=== PATIENT | female | born 1945 | race Two or more races ===

== ENCOUNTER 2021-11-19 14:27 | Outpatient (CLI) | payer OTHER | END 2021-11-19 14:28 | disposition home or self-care (01) | LOC: NUCLEAR 14:27 | PROVIDERS: ATTEND Internal Medicine Sports Medicine | DX: C73 Malignant neoplasm of thyroid gland (principal); E89.0 Postprocedural hypothyroidism | CPT/HCPCS: 79005; A9517 ==

== ENCOUNTER 2021-11-23 12:27 | Outpatient (CLI) | payer OTHER | END 2021-11-23 12:28 | disposition home or self-care (01) | LOC: NUCLEAR 12:27 | PROVIDERS: ATTEND Internal Medicine Sports Medicine | DX: C73 Malignant neoplasm of thyroid gland (principal); E89.0 Postprocedural hypothyroidism | CPT/HCPCS: 78018; 78020; A9528 ==

== ENCOUNTER 2023-06-03 12:19 | Outpatient (CLI) | payer OTHER | END 2023-06-03 12:23 | disposition home or self-care (01) | LOC: NUCLEAR 12:19 | PROVIDERS: ATTEND Internal Medicine Sports Medicine | DX: C73 Malignant neoplasm of thyroid gland (principal) | CPT/HCPCS: 78015; A9531 ==